=== PATIENT | male | born 1960 | race Caucasian/White ===

== ENCOUNTER → 2024-02-21 | Outpatient (CLI) | payer BC, SELFPAY ==
[2024-02-21 13:43] LABS: Cocci Serology, IgM Negative (Negative)
[2024-02-22 12:00] LABS: Cocci Serology, IgG Negative (Negative)
== END | disposition home or self-care (01) ==
LOC: COPL 08:07
PROVIDERS: PCP Internal Medicine; Referring Provider Internal Medicine; Visit Provider Internal Medicine
DX: B38.9 Coccidioidomycosis, unspecified (principal)
CPT/HCPCS: 36415; 86331; 86635

== ENCOUNTER → 2024-04-06 | Outpatient (CLI) | payer BC, SELFPAY ==
--- NOTE | 2024-04-06 09:17 | XR_ITS ---
Examination: PA lateral chest 2 views TECHNIQUE: Upright PA lateral chest 2 views Exam date and time: April 06, 2024 0940 hours Comparison April 23, 2023 INDICATIONS: Swollen lymph nodes beginning one year ago. FINDINGS: Normal heart size. The hilar regions appear less prominent compared to the April 23, 2023 exam No pneumonia or pulmonary edema IMPRESSION: The bilateral hilar and left tracheobronchial lymph nodes appear slightly less prominent compared to the prior study Recommend continued 6 month follow-up PA lateral chest
== END | disposition home or self-care (01) ==
LOC: CDIM 09:11
PROVIDERS: PCP Internal Medicine; Referring Provider Internal Medicine; Visit Provider Internal Medicine
DX: B38.9 Coccidioidomycosis, unspecified (principal)
CPT/HCPCS: 71046

== ENCOUNTER → 2024-05-10 | Outpatient (CLI) | payer BC, SELFPAY ==
[2024-05-10 08:41] LABS: Basophils % (Auto) 1 % (0-2.5); Eosinophils # (Auto) 0.2 Thou/mm3 (0.0-0.5); Eosinophils % (Auto) 3 % (0-10); Hemoglobin 15.4 g/dL (13.5-16.0); Immature Granulocytes % (Auto) 2 % (0-0); Lymphocytes # (Auto) 1.5 Thou/mm3 (1.0-4.8); Lymphocytes % (Auto) 29 % (10-50); Mean Corpuscular HGB Conc 34.2 g/dl (31.0-37.0); Mean Corpuscular Hemoglobin 29.3 pg (25.0-35.0); Mean Corpuscular Volume 86 fL (80-100); Monocytes # (Auto) 0.6 Thou/mm3 (0.0-0.8); Monocytes % (Auto) 11 % (0-12); Neutrophils # (Auto) 2.9 Thou/mm3 (1.8-7.7); Neutrophils % (Auto) 55 % (37-80); Nucleated Red Blood Cell % 0 /100 WBC (0); Platelet Count 255 Thou/mm3 (140-440); RDW Standard Deviation 36.9 fL (35.1-43.9); Red Blood Count 5.26 Miln/mm3 (4.50-5.90); White Blood Count 5.3 Thou/mm3 (3.8-10.6)
[2024-05-10 09:00] LABS: Glucose Estimated Average 108 mg/dL (80-131); Hemoglobin A1C 5.4 % Hgb (4.8-6.0)
[2024-05-10 09:06] LABS: Prostate Specific Antigen 2.29 ng/mL (0-4.00)
[2024-05-10 09:07] LABS: Vitamin D 25 Hydroxy Total 39.9 ng/mL (7.3-40.2)
[2024-05-10 09:17] LABS: Alanine Aminotransferase 11 U/L (10-49); Albumin, Serum 4.4 gm/dL (3.4-4.8); Albumin/Globulin Ratio 1.6 (1.2-2.2); Alkaline Phosphatase 86 U/L (46-116); Anion Gap 8 (7-16); Aspartate Amino Transferase 18 U/L (0-34); BUN/Creatinine Ratio 15 Ratio (12-20); Bilirubin,Total 0.7 mg/dL (0.3-1.2); Blood Urea Nitrogen 16 mg/dL (9-23); Calcium 9.5 mg/dL (8.3-10.6); Calcium (Corrected) 9.5 mg/dL (8.5-10.1); Carbon Dioxide 29.3 mMol/L (20.0-31.0); Cardiac Risk Estimate 5.4 RATIO (4.0-6.7); Chloride 103 mMol/L (98-107); Cholesterol 168 mg/dL (132-200); Creatinine (Component) 1.1 mg/dL (0.6-1.3); Free T4 (Free Thyroxine) 1.27 ng/dL (0.89-1.76); Globulin 2.8 gm/dL (2.3-3.5); Glucose 94 mg/dL (74-106); HDL Cholesterol 31 mg/dL (40-60); LDL Cholesterol,Calculated 89 mg/dL (0-130); Osmolality,Calculated 280 (275-295); Potassium 4.2 mMol/L (3.4-5.1); Sodium 140 mMol/L (136-145); Thyroid Stimulating Hormone 1.85 uIU/mL (0.55-4.78); Total Protein 7.2 gm/dL (5.7-8.2); Triglycerides 239 mg/dL (30-150); eGFR > 60 See Note
[2024-05-10 11:35] LABS: Cocci Serology, IgM Negative (Negative)
[2024-05-11 11:29] LABS: Cocci Serology, IgG Negative (Negative)
== END | disposition home or self-care (01) ==
LOC: COPL 07:12
PROVIDERS: PCP Internal Medicine; Referring Provider Internal Medicine; Visit Provider Internal Medicine
DX: Z00.00 Encounter for general adult medical examination without abnormal findings (principal); N40.1 Benign prostatic hyperplasia with lower urinary tract symptoms; E55.9 Vitamin D deficiency, unspecified
CPT/HCPCS: 36415; 80053; 80061; 82306; 83036; 84153; 84439; 84443; 85025; 86331; 86635

== ENCOUNTER → 2024-08-01 | Outpatient (CLI) | payer BC, SELFPAY ==
[2024-08-07 07:07] LABS: Testosterone, Free,Dialysis 31.6 pg/mL (35.0-155.0); Testosterone, Total, Dialysis 165 ng/dL (250-1100)
== END | disposition home or self-care (01) ==
LOC: COPL 06:48
PROVIDERS: PCP Internal Medicine; Referring Provider Internal Medicine; Visit Provider Internal Medicine
DX: I11.0 Hypertensive heart disease with heart failure (principal)
CPT/HCPCS: 36415; 84402; 84403